=== PATIENT | male | born 1960 | race Caucasian/White ===

== ENCOUNTER 2016-08-24 05:35 | Day surgery (SDC) | payer BC ==
[~2016-08-24] VITALS: Ht 185.4 cm; Wt 104.3 kg
[~2016-08-24 05:35] MED LIST: ACID CONTROLLER20 MG PO; CIPRO500 MG PO; DAILY VALUE1 EACH PO; FLAGYL500 MG PO; FLORASTOR250 MG PO; METRONIDAZOLE500 MG PO; PRINIVIL10 MG PO
[2016-08-24 06:46] VITALS: BP 130/81
[2016-08-24 11:25] VITALS: BP 130/78
[2016-08-24 12:30] VITALS: BP 146/92
== END 2016-08-24 12:53 | disposition home or self-care (01) ==
LOC: SDC 05:35
PROC: 09SM4ZZ Reposition Nasal Septum, Percutaneous Endoscopic Approach (ICD-10-PCS; principal; 2016-08-24)
DX: J34.2 Deviated nasal septum (principal); J34.3 Hypertrophy of nasal turbinates; J31.0 Chronic rhinitis; J31.1 Chronic nasopharyngitis; Z87.891 Personal history of nicotine dependence; Z88.0 Allergy status to penicillin; I10 Essential (primary) hypertension
CPT/HCPCS: 93005; J0330; J0690; J1100; J2405; J2710; J3010; J3301; J7050

== ENCOUNTER 2017-03-29 16:57 | Emergency (ER) | payer BC ==
[~2017-03-29] VITALS: Ht 185.4 cm; Wt 105.9 kg
[2017-03-29 17:55] LABS: HEMATOCRIT 46.7 % (38.0-50.0); HEMOGLOBIN 16.3 G/DL (12.5-16.6); MCH 30.4 PG (29.0-34.0); MCHC 34.9 G/DL (30.0-36.0); PLATELET COUNT 212 K/uL (156-360); RBC DIS.WIDTH-CV 13.9 % (11.8-14.6); RBC DIS.WIDTH-SD 44.7 % (39-53); RED BLOOD COUNT 5.37 M/uL (4.00-5.50); WHITE BLOOD COUNT 16.1 K/uL (4.1-10.2)
[2017-03-29 18:33] LABS: ALBUMIN 4.2 g/dL (3.2-4.8)
[2017-03-29 18:34] LABS: CHLORIDE 104 mEq/L (99-109); POTASSIUM 4.1 mEq/L (3.7-5.4); SODIUM 139 mEq/L (136-147)
[2017-03-29 18:36] LABS: GLUCOSE 107 mg/dL (70-99); TOTAL PROTEIN 7.5 g/dL (6.4-8.3)
[2017-03-29 18:38] LABS: TOTAL BILIRUBIN 0.7 mg/dL (0.0-1.0)
[2017-03-29 18:39] LABS: ALKALINE PHOSPHATASE 73 IU/L (3-129)
[2017-03-29 18:40] LABS: CREATININE 0.9 mg/dL (0.6-1.3); GFR ESTIMATE (CALCULATED) > 59 mL/min/ (58.99-99999)
[2017-03-29 18:41] LABS: AST (GOT) 23 IU/L (2-34); UREA NITROGEN (BUN) 24 mg/dL (9-23)
[2017-03-29 18:42] LABS: ALT (GPT) 26 IU/L (3-49)
[2017-03-29 18:43] LABS: LIPASE 16 U/L (1.0-51.0)
[2017-03-29] MEDS ORDERED: FLAGYL500 MG PO (19:50)
[2017-03-29] MEDS ORDERED: ZOFRAN ODT8 MG PO (19:50)
[2017-03-29] MEDS ORDERED: CARAFATE1 GM PO (19:50)
[2017-03-29] MEDS ORDERED: PEPCID20 MG PO (19:50)
[2017-03-29] MEDS ORDERED: CIPRO500 MG PO (19:50)
[2017-03-29 20:16] VITALS: BP 135/91
== END 2017-03-29 20:17 | disposition home or self-care (01) ==
LOC: EME 16:57
PROVIDERS: Physician Assistant
DX: K57.32 Diverticulitis of large intestine without perforation or abscess without bleeding (principal); K82.8 Other specified diseases of gallbladder; K76.0 Fatty (change of) liver, not elsewhere classified; Z87.891 Personal history of nicotine dependence; Z87.19 Personal history of other diseases of the digestive system; Z88.0 Allergy status to penicillin
CPT/HCPCS: 74177; 80053; 81003; 83690; 85027; 87502; 99281; 99285; J7040